=== PATIENT | female | born 1995 | race Hispanic/Latino ===

== ENCOUNTER 2023-07-14 11:15 | Emergency (ER) | payer OTHER, SELFPAY ==
[2023-07-14] MEDS ORDERED: Ketorolac Tromethamine 30 MG/ML VIAL ONE (11:46)
== END 2023-07-14 12:40 | disposition home or self-care (01) ==
LOC: ERS 11:15
DX: S06.0X0A Concussion without loss of consciousness, initial encounter (principal); M25.562 Pain in left knee; V49.9XXA Car occupant (driver) (passenger) injured in unspecified traffic accident, initial encounter
CPT/HCPCS: 70450; 96372; J1885